=== PATIENT | female | born 1985 | race Asian ===

== ENCOUNTER → 2023-12-29 10:34 | Outpatient (BNVA) | payer OTHER, SELFPAY | PROVIDERS: Visit Provider Family Medicine Adult Medicine | DX: Z13.9 Encounter for screening, unspecified (principal); Z00.00 Encounter for general adult medical examination without abnormal findings | CPT/HCPCS: 80053; 84443; 85025 ==

== ENCOUNTER → 2024-07-19 15:27 | Outpatient (BNVA) | payer OTHER, SELFPAY | PROVIDERS: Visit Provider Obstetrics & Gynecology | DX: Z13.9 Encounter for screening, unspecified (principal); Z01.419 Encounter for gynecological examination (general) (routine) without abnormal findings | CPT/HCPCS: 80053; 84443; 85025; 87624 ==

== ENCOUNTER → 2024-08-09 12:25 | Outpatient (BNVA) | payer OTHER, SELFPAY | PROVIDERS: Visit Provider Obstetrics & Gynecology | DX: N88.9 Noninflammatory disorder of cervix uteri, unspecified (principal); R10.2 Pelvic and perineal pain | CPT/HCPCS: 76830 ==

== ENCOUNTER 2024-09-20 09:15 | Outpatient (CLI) | payer OTHER, SELFPAY ==
--- NOTE | 2024-09-20 09:30 | MM_ITS ---
WS: [id number] VIEWS: MLO and CC views both breasts. 3D digital tomosynthesis is also included in this exam. no comparisons. Baseline study.. Findings: The breasts are extremely dense, which lowers the sensitivity of mammography. No suspicious mass, tumor calcification or architectural distortion. MM/MM scr BI tomosynthesis [id number] Impression: BI-RADS: 2 - Benign FOLLOW-UP: 1 Year Follow-up This mammogram was also analyzed by the Computer Aided Detection System R2 Imag e Head [employer].
== END 2024-09-20 09:16 | disposition home or self-care (01) ==
LOC: RAD 09:16
PROVIDERS: Visit Provider Nurse Practitioner Women's Health
DX: Z12.31 Encounter for screening mammogram for malignant neoplasm of breast (principal); R92.333 Mammographic heterogeneous density, bilateral breasts
CPT/HCPCS: 77063; 77067

== ENCOUNTER 2025-08-06 20:59 | Emergency (ER) | payer OTHER, SELFPAY ==
[2025-08-06 21:15] VITALS: BP 118/84; PULSE 70; RESP 16; TEMP 36.6; O2SAT 99
[2025-08-06 22:34] LABS: Glucose Urine UA Negative (Normal); Nitrate Urine Negative (Negative); Specific Gravity, Urine 1.004 (1.005-1.030)
[2025-08-06 22:39] LABS: Add Urine Microscopic? YES
[2025-08-06 23:15] VITALS: BP 116/92; PULSE 67; RESP 16; O2SAT 99
[2025-08-06 23:16] LABS: Hematocrit 43.0 % (36-47); Hemoglobin 14.00 g/dL (11.27-16.99); Mean Corpuscular HGB Conc 32.6 g/dL (30-55); Mean Corpuscular Hemoglobin 30.0 pg (27-33); Mean Corpuscular Volume 92.3 fl (85-98); Nucleated Red Blood Cells % 0 %; Platelet Count 236 10^3/cmm (157-399); Red Blood Count 4.66 10^6/uL (3.85-5.65); White Blood Count 6.35 10^3/uL (3.29-11.43)
--- NOTE | 2025-08-06 23:19 | ED_ITS ---
HPI - Abdominal Pain 2 General: Chief Complaint: Abdominal Pain Stated Complaint: feels sick n/v Time Seen by Provider: 08/06/25 23:06 History of Present Illness: Patient is a 39-year-old female with history of cervical fibroid, followed by [facility], has presents to the ED with 2 days of nausea, and vomiting. She denies any stool changes. No abdominal surgeries. Cervical fibroid is followed by ultrasound yearly by [facility]. This started 2 days ago. No previous issues. No sick contact. Associated Symptoms: Reports nausea and vomiting; Denies chills, diarrhea, dysuria, fever(s) and syncope Related Data Previous Rx's ?Medication ?Instructions ?Recorded ondansetron 4 mg disintegrating 4 mg PO Q8H PRN nausea and 08/07/25 tablet vomiting 4 days #14 tabs Allergies Allergy/AdvReac Type Severity Reaction Status Date / Time No Known Allergies Allergy Verified 08/06/25 21:20 Review of Systems 2 Const: Denies: fever(s), chills, body aches, change in appetite or night sweats Eyes: Denies: change in vision, blurry vision, photophobia or eye discharge ENMT: Denies: throat pain, enlarged tonsils, odynophagia, hoarseness, oral sores, ear or mastoid pain, ear discharge, change in hearing, nasal discharge or nasal congestion Card: Denies: chest pain, palpitations, irregular heart rhythm, swelling of feet/ankles, syncope or dyspnea on exertion Resp: Denies: dyspnea, productive cough, non-productive cough or wheezing GI: Reports: abdominal pain, nausea and vomiting; Denies: diarrhea : Denies: flank pain, difficulty voiding or dysuria Musc: Denies: neck pain, back pain, extremity pain or extremity swelling Skin/Breast: Denies: rash, pruritus or skin tenderness Neuro: Denies: headache(s) or numbness in extremities PFSH ED 2 PFSH: Medical History (Updated 08/07/25 @ 01:24 by DIANA Bonilla) Encounter for health-related screening Encounter for health maintenance examination No pertinent past medical history Surgical History No pertinent past surgical history Family History Father No problems noted. Mother No problems noted. Social History Smoking and tobacco/nicotine status: never used tobacco/nicotine Physical Exam 2 Const: COMMON NORMALS: no acute distress, average body habitus and patient oriented x3 HENMT: COMMON NORMALS: normocephalic and atraumatic HEAD & SCALP: n ormocephalic and atraumatic Neck/C-Spine: COMMON NORMALS: full ROM and no lymphadenopathy Lymph: LYMPHATIC: no lymphadenopathy noted Resp: COMMON NORMALS: normal respiratory effort, No retractions and No use of accessory muscles Cardio: COMMON NORMALS: regular rate and regular rhythm RATE: regular rate RHYTHM: regular rhythm GI: COMMON NORMALS: Normal to inspection, nondistended, normoactive bowel sounds present, Soft to palpation and non-tender PALPATION: Yes Soft to palpation : COMMON NORMALS: Yes no CVA tenderness BLADDER/KIDNEY EXAM: Yes no CVA tenderness Back/Pelvis: COMMON NORMALS: no CVA tenderness Extremity: COMMON NORMALS: normal to inspection, full ROM and capillary refill normal Neuro: COMMON NORMALS: patient oriented x3 Course 2 Vital Signs: Vital signs: Vital Signs Temperature 97.8 F 08/06/25 21:15 Pulse Rate 63 08/07/25 01:06 Respiratory Rate 15 08/07/25 01:06 Blood Pressure 112/72 08/07/25 01:06 Pulse Oximetry 96 08/07/25 01:06 Oxygen Delivery Me thod Room Air 08/07/25 00:51 MDM - Abdominal Pain Medical Decision Making Patient is a 39-year-old Mandarin primary speaking patient that comes in with 2 days of nausea, vomiting without stool change. She admits to diffuse abdominal pain. CT is pending, however there is increased wall thickening in the gastrum. Will add on H. pylori, and give PPI x 1. Patient is well receive Zofran, IV fluids. Labs are fairly were unremarkable, as well as urine analysis. Lipase is in range. CTA of the abdomen pelvis is pending when turned over to Dr. Morales. Medical Records I reviewed the patient's medical records. Lab Data I reviewed the patient's lab results. 08/06/25 23:08 08/06/25 23:08 Labs/Radiology: Radiology Impressions Abdomen/Pelvis CT 08/07/25 00:14 IMPRESSION: 1. Left ovarian corpus luteum or hemorrhagic cyst measuring 2.1 cm, likely ruptured, with a small quantity of free fluid within the posterior cul-de-sac of the pelvis. 2. No other acute pathology identified within the abdomen or pelvis. Laboratory Results WBC 6.35 10^3/uL (3.29-11.43) 08/06/25 23:08 RBC 4.66 10^6/uL (3.85-5.65) 08/06/25 23:08 Hgb 14.00 g/dL (11.27-16.99) 08/06/25 23:08 Hct 43.0 % (36-47) 08/06/25 23:08 MCV 92.3 fl (85-98) 08/06/25 23:08 MCH 30.0 pg (27-33) 08/06/25 23:08 MCHC 32.6 g/dL (30-55) 08/06/25 23:08 RDW 12.1 % (12.1-15.1) 08/06/25 23:08 Plt Count 236 10^3/cmm (157-399) 08/06/25 23:08 MPV 10.3 fL (7.4-10.4) 08/06/25 23:08 Neut % (Auto) 59.0 % 08/06/25 23:08 Lymph % (Auto) 33.4 % 08/06/25 23:08 [place] % (Auto) 6.0 % 08/06/25 23:08 Eos % (Auto) 0.6 % 08/06/25 23:08 Baso % (Auto) 0.8 % 08/06/25 23:08 Neut # (Auto) 3.75 10^3/uL (1.8-7.7) 08/06/25 23:08 Lymph # (Auto) 2.1 10^3/uL (0.8-4.8) 08/06/25 23:08 [place] # (Auto) 0.4 10^3/uL (0.2-0.9) 08/06/25 23:08 Eos # (Auto) 0.0 10^3/uL (0.0-0.8) 08/06/25 23:08 Baso # (Auto) 0.1 10^3/uL (0.0-0.1) 08/06/25 23:08 Nucleated RBC % (auto) 0 % 08/06/25 23:08 Nucleated RBCs # 0.0 /100WBC 08/06/25 23:08 Sodium 136 mmol/L (136-145) 08/06/25 23:08 Potassium 4.2 mmol/L (3.5-5.1) 08/06/25 23:08 Chloride 102 mmol/L (98-107) 08/06/25 23:08 Carbon Dioxide 20 mmol/L (22-29) L 08/06/25 23:08 Anion Gap 18.2 (5-19) 08/06/25 23:08 BUN 17 mg/dL (6-20) 08/06/25 23:08 Creatinine 0.7 mg/dL (0.5-0.9) 08/06/25 23:08 GFR Calculation 92.7 mL/min (90-130) 08/06/25 23:08 Glucose 94 mg/dL (65-115) 08/06/25 23:08 Calculated Osmolality 283 mOsm/kg (285-295) L 08/06/25 23:08 Calcium 9.2 mg/dL (8.5-10.5) 08/06/25 23:08 Total Bilirubin 0.6 mg/dL (0.15-1.2) 08/06/25 23:08 AST 26 U/L (0-32) 08/06/25 23:08 ALT 25 U/L (0-33) 08/06/25 23:08 Alkaline Phosphatase 66 U/L (35-105) 08/06/25 23:08 C-Reactive Protein 3.0 mg/L (0.0-4.9) 08/06/25 23:08 Total Protein 7.5 g/dL (6.6-8.7) 08/06/25 23:08 Albumin 4.5 g/dL (3.5-5.2) 08/06/25 23:08 Globulin 3.0 g/dL (1.3-4.6) 08/06/25 23:08 Lipase 51 U/L (13-60) 08/06/25 23:08 HCG, Qual Negative (Negative) 08/06/25 23:08 Urine Color Yellow (Yellow) 08/06/25 22:29 Urine Appearance Clear (CLEAR) 08/06/25: Urine pH 5.5 (5-7) 08/06/25: Ur Specific [place] 1.004 (1.005-1.030) L 08/06/25: Urine Protein Negative (Negative) 08/06/25: Urine Glucose (UA) Negative (Normal) 08/06/25: Urine Ketones Negative (Negative) 08/06/25: Urine Blood Negative (Negative) 08/06/25: Urine Nitrate Negative (Negative) 08/06/25: Urine Bilirubin Negative (Negative) 08/06/25: Urine Urobilinogen 0.2 mg/dL (Negative) 08/06/25: Ur Leukocyte Esterase Negative (Negative) 08/06/25: Urine RBC 0-2 /hpf (0-2) 08/06/25: Urine WBC 0-5 /hpf (0-5) 08/06/25: Ur Squamous Epith Cells 0-5 /hpf (0-5) 08/06/25: Amorphous Sediment Not Reportable 08/06/25: Urine Bacteria None seen /hpf (NONE) 08/06/25: Hyaline Casts 0-4 /lpf H 08/06/25: XR interpretation done by ED provider, pending radiology final review Discharge Plan Discharge Patient Disposition: Home Clinical Impression: Gastroenteritis Gastritis Qualifiers: Gastritis type: unspecified gastritis Chronicity: acute Gastritis bleeding: w ithout bleeding Qualified Code(s): K29.00 - Acute gastritis without bleeding Condition: Stable Prescriptions: New ondansetron 4 mg tablet,disintegrating 4 mg PO Q8H PRN (Reason: nausea and vomiting) 4 Days Qty: 14 0RF Discharge Orders: Discharge ED (Routine); Ordered 08/07/25 Ordered By: Chelle Kinsey Discharge Diet: Clear Liquid and Full LIquid Patient Instructions: Clear Liquid Diet, Gastroenteritis (ED), Patient Portal & [facility]mya Instructions Activity Restrictions/Additional Instructions: - Zofran has been sent to your pharmacy. Use as directed. - Clear liquid diet only until symptoms resolve - Follow-up with your regular doctor - Feel free to come back to the ER for reevaluation if you have ongoing issues. Thank you for choosing [facility] for your healthcare needs today. You have been screened and evaluated and felt safe for discharge. Health conditions do change or evolve sometimes and as such it is important that you follow up with your Primary Doctor to be re checked, 3-5 days is a general good time frame for follow up. You are always welcome to return to the ED for re assessment if your symptoms are worsening or you have new concerns Print Language: Mandarin Cameroonian Coding Level of Care Code ED [employer] for Deanne Coronado
[2025-08-06 23:30] LABS: Alanine Aminotransferase 25 U/L (0-33); Albumin Level 4.5 g/dL (3.5-5.2); Alkaline Phosphatase 66 U/L (35-105); Aspartate Amino Transferase 26 U/L (0-32); Blood Urea Nitrogen 17 mg/dL (6-20); Calcium 9.2 mg/dL (8.5-10.5); Carbon Dioxide 20 mmol/L (22-29); Chloride 102 mmol/L (98-107); Globulin 3.0 g/dL (1.3-4.6); Glucose 94 mg/dL (65-115); Lipase 51 U/L (13-60); Osmolality Calculated 283 mOsm/kg (285-295); Sodium 136 mmol/L (136-145); Total Protein 7.5 g/dL (6.6-8.7)
[2025-08-06 23:31] LABS: Anion Gap 18.2 (5-19); Potassium 4.2 mmol/L (3.5-5.1)
[2025-08-06] MEDS: ondansetron 2 mg/ML SDV 2 mL 4 MG IVP (23:33)
[2025-08-06 23:34] LABS: HCG, Serum Qual Negative (Negative)
--- NOTE | 2025-08-07 00:14 | CTR_ITS ---
PROCEDURE INFORMATION: Exam: CT Abdomen And Pelvis With Contrast Exam date and time: 08/07/2025 12:39 AM Age: 39 years old Clinical indication: Abdominal pain; Generalized; Diffuse abd pain with nausea TECHNIQUE: Imaging protocol: Computed tomography of the abdomen and pelvis with contrast. Radiation optimization: All CT scans at this facility use at least one of these dose optimization techniques: automated exposure control; mA and/or kV adjustment per patient size (includes targeted exams where dose is matched to clinical indication); or iterative reconstruction. Contrast material: OMNI 350; Contrast volume: 80 ml; Contrast route: INTRAVENOUS (IV); COMPARISON: US transvaginal [id number] 08/09/2024 12:33 PM RADIATION DOSE METRICS: Total DLP (mGy-cm): 315.2 FINDINGS: Liver: Liver normal in size and contour. Superolateral right hepatic lobe hypodensity measuring 8 mm, likely simple cyst. Gallbladder and biliary ducts: Normal. No calcified stones. No ductal dilation. Pancreas: Normal. No ductal dilation. Spleen: Normal. No splenomegaly. Adrenal glands: Normal. No mass. Kidneys and ureters: Normal. No hydronephrosis. Stomach and bowel: Unremarkable. No obstruction. No mucosal thickening. Appendix: No evidence of appendicitis. Intraperitoneal space: Unremarkable. No free air. No significant fluid collection. Vasculature: Unremarkable. No abdominal aortic aneurysm. Lymph nodes: Unremarkable. No enlarged lymph nodes. Urinary bladder: Unremarkable as visualized. Reproductive: Left ovarian corpus luteum or hemorrhagic cyst measuring 2.1 cm. Bones/joints: Unremarkable. No acute fracture. Soft tissues: Unremarkable. CT/CT abdomen pelvis w con* [id number] IMPRESSION: 1. Left ovarian corpus luteum or hemorrhagic cyst measuring 2.1 cm, likely ruptured, with a small quantity of free fluid within the posterior cul-de-sac of the pelvis. 2. No other acute pathology identified within the abdomen or pelvis.
[2025-08-07] MEDS: iohexol 350 mg/mL 500 mL Btl (per mL) IV (00:42)
[2025-08-07 00:51] VITALS: BP 121/72; PULSE 61; RESP 16; O2SAT 100
[2025-08-07 01:06] VITALS: BP 112/72; PULSE 63; RESP 15; O2SAT 96
[2025-08-07] MEDS: pantoprazole 40 mg SDV IVP (01:06)
[2025-08-07 01:33] VITALS: BP 112/72; PULSE 73; RESP 15; TEMP 36.5; O2SAT 97
== END 2025-08-07 01:35 | disposition home or self-care (01) ==
PROVIDERS: Emergency Medicine; Emergency Provider Physician Assistant
DX: K52.9 Noninfective gastroenteritis and colitis, unspecified (principal); K29.00 Acute gastritis without bleeding
CPT/HCPCS: 36415; 74177; 80053; 81001; 83690; 84703; 85025; 86140; 86677; 96361; 96374; 96375; 99285; J2405; J2470; J7120

== ENCOUNTER → 2025-09-04 08:47 | Outpatient (BNVA) | payer OTHER, SELFPAY | PROVIDERS: PCP Family Medicine; Visit Provider Family Medicine | DX: Z13.6 Encounter for screening for cardiovascular disorders (principal) | CPT/HCPCS: 80053; 80061; 84439; 84443; 85025 ==

== ENCOUNTER → 2025-09-25 12:21 | Outpatient (BNVA) | payer OTHER, SELFPAY | PROVIDERS: Visit Provider Obstetrics & Gynecology | DX: N83.292 Other ovarian cyst, left side (principal) | CPT/HCPCS: 76830 ==